=== PATIENT | male | born 1980 | race Caucasian/White ===

== ENCOUNTER 2021-10-22 10:12 | Outpatient (CLI) | payer OTHER, SELFPAY ==
[2021-10-22 11:09] LABS: Erythrocyte Sedimentation Rate 4 mm/hr (0-20)
[2021-10-22 11:10] LABS: Absolute Lymphocyte Count 1.33 X10^3/uL (0.83-4.51); Absolute Neutrophil Count 1.8 X10^3/uL (2.0-7.7); Basophil# 0.04 X10^3/uL; Eosinophil# 0.09 X10^3/uL; Eosinophils% 2.4 % (0-5); Hematocrit 41.2 % (40-54); Hemoglobin 14.5 g/dL (13.0-16.5); Lymphocyte # 1.33 X10^3/ul (0.83-4.51); Lymphocyte % 34.9 % (19-41); Mean Corp Hgb Conc 35.2 g/dL (32-36); Mean Corpuscular Hgb 32.2 pg (27.0-32.0); Mean Corpuscular Volume 91.6 fL (80-94); Mean Platelet Vol. 9.3 fl (6.2-12.0); Monocyte# 0.54 X10^3/uL; Monocyte% 14.2 % (0-10); NRBC Flagged by Analyzer 0 % (0-5); Neutrophil % 47.2 % (47-70); Platelet Count 279 K/mm3 (150-450); RBC Distribution Width CV 13.2 % (11.6-14.6); RBC Distribution Width SD 44.9 fl (35.1-43.9); White Blood Count 3.8 K/mm3 (4.4-11.0)
[2021-10-22 11:32] LABS: Anion Gap 6 (5-15); BUN 5 mg/dL (7-18); BUN/Creat Ratio 6.1 RATIO (10-20); CRP < 2.90 mg/L (0.0-3.0); Calcium,Total 9.5 mg/dL (8.5-10.1); Chloride 105 mmol/L (98-107); Creatinine, Serum 0.82 mg/dL (0.70-1.30); EST Glomerular Filtration Rate 108 mL/min (>60); Est Glom Filt Rate - Afr Amer 131 mL/min (>60); Glucose 95 mg/dL (74-106); Potassium 4.2 mmol/L (3.5-5.1); Sodium Level 136 mmol/L (136-145)
[2021-10-22 11:34] LABS: Vitamin D,25 Hydroxy 49.6 ng/mL
[2021-10-22 11:43] LABS: Hemoglobin A1c 5.1 % (3.8-5.6)
== END 2021-10-22 23:59 | disposition home or self-care (01) ==
LOC: LAB 10:19
PROVIDERS: Visit Provider Physician Assistant Surgical
DX: S62.325K Displaced fracture of shaft of fourth metacarpal bone, left hand, subsequent encounter for fracture with nonunion (principal); X58.XXXD Exposure to other specified factors, subsequent encounter
CPT/HCPCS: 36415; 80048; 82306; 83036; 85025; 85652; 86140